=== PATIENT | male | born 1955 | race Two or more races ===

== ENCOUNTER 2022-06-11 13:30 | Outpatient (REF) | payer OTHER, SELFPAY ==
[2022-06-11 15:12] LABS: C Reactive Protein 0.35 mg/dL (< or = 0.50)
[2022-06-11 15:27] LABS: Erythrocyte Sedimentation Rate 11 MM/HR (0-15)
== END 2022-06-11 13:31 | disposition home or self-care (01) ==
LOC: HO.LAB 13:30
PROVIDERS: Visit Provider Psychiatry & Neurology Neurology
DX: G43.909 Migraine, unspecified, not intractable, without status migrainosus (principal)
CPT/HCPCS: 36415; 85652; 86140

== ENCOUNTER 2025-05-30 13:05 | Outpatient (AMB) | payer OTHER, SELFPAY ==
--- NOTE | 2025-05-30 13:17 | A.OFFVIS_ITS ---
Intake Visit Reasons: Follow up ok's per dr. daniel GIRALDO Comments Details: 70 years old man with Parkinson's disease, insomnia and migraine without aura. He is presenting with difficulty sleeping and management of Parkinson's Disease symptoms. He has a history of Parkinson's Disease, for which he takes Carbidopa- Levodopa. The patient continues to experience tremors, predominantly unresponsive to current medication due to potential risks associated with age. His current medication regimen effectively targets stiffness and slowing, allowing improved mobility. Sleep disturbances have persisted, averaging four to five hours of sleep per night, for which Trazodone is prescribed. Non-pharm acological strategies, including increased physical activity, were also discussed. Review of Systems Const Details: - Neurological: Reports tremors, particularly in the afternoon; Reports difficulty sleeping. - General: Denies adequate sleep duration. Physical Exam Neuro Other: He is alert and awake with normal spontaneity and fluency of speech. Facial expression blinking or diminished. There was [id number] bilateral hand resting tremor. He is walking in his stooped posture with decreased arm swing in his slow paced gait. Assessment & Plan Assessment & Plan (1) Parkinson disease: Code(s): G20.A1 - Parkinson's disease without dyskinesia, without mention of fluctuations Category: Medical Qualifiers: Dyskinesia presence: without dyskinesia Fluctuating manifestations: with fluctuating manifestations Qualified Code(s): G20.A2 - Parkinson's disease without dyskinesia, with fluctuations (2) Migraine: Code(s): G43.909 - Migraine, unspecified, not intractable, without status migrainosus Category: Medical Qualifiers: Migraine type: migraine (< 15 days per month) without aura Status migrainosus presence: without status migrainosus Intractability: not intractable Qualified Code(s): G43.009 - Migraine without aura, not intractable, without status migrainosus (3) Insomnia: Code(s): G47.00 - Insomnia, unspecified Category: Medical Qualifiers: Insomnia type: due to medical condition Qualified Code(s): G47.01 - Insomnia due to medical condition Plan Impression: a: Parkinson disease b: Migraine w/o aura c: Insomnia Rec: a: Carbidopa/levodopa ER, 50/200, 4 times a day b: Pramipexole 0.25mg, 3 times a day c: Rasagaline 0.5mg one a day d: Trazodone 50mg 1-2 at night During the visit, I discussed with the patient the chronic nature of Parkinson's Disease and the limitations in managing tremors due to potential adverse effects from certain medications in older patients. The risks of these medications include dizziness and urinary retention, which are significant at the patient's current age. We reviewed his current medication regimen, particularly Carbidopa- Levodopa, which has been beneficial for stiffness and mobility. There's acknowledgment of the ongoing tremors for which there's no suitable pharmacologic intervention at this time. For sleep disturbances, we discussed increasing the current dose of Trazodone to assess tolerance and efficacy. In addition, behavioral modifications such as increased physical activity were recommended to assist with sleep quality. I explained the rationale for these recommendations, their risks and benefits, and the necessity for the patient to monitor symptoms and response, reporting back for potential dosage adjustments. I advised a follow-up visit in six months unless issues arise sooner. Medications: New rasagiline 0.5 mg PO DAILY 90 tabs 1RF carbidopa-levodopa 50-200 mg ER divide evenly over waking hours 1 tab PO QID 360 tabs 1RF Refilled pramipexole 0.25 mg PO TID 270 tabs 0RF Coding Level of Care Code Est Pt Level 4 (72917) Diagnoses Parkinson's disease without dyskinesia, with fluctuating manifestations G20.A2 Dyskinesia presence: without dyskinesia Fluctuating manifestations: with fluctuating manifestations Migraine without aura and without status migrainosus, not intractable G43.009 Migraine type: migraine (< 15 days per month) without aura Status migrainosus presence: without status migrainosus Intractability: not intractable Insomnia due to medical condition G47.01 Insomnia type: due to medical condition
--- OUTSIDE RECORDS SUMMARY | 2025-05-30 16:04 | XMS_ITS | Clinical Summary ---
Author Organization [address] [facility] Address [address] [place] [address] Phone Care Team Providers Care Television Director Name Role Phone Rainer Yepez MD Primary Care Provider [phone] Allergies Active Allergy Reactions Criticality Noted Date Comments Iodine 03/29/2025 Penicillin G 03/29/2025 Medications carbidopa-levod opa CR (SINEMET CR) 50-200 mg per CR tablet Take 1 tablet by mouth 4 (four) times a day. 0 Active rasagiline (AZILECT) 0.5 mg tablet Take 1 tablet (0.5 mg total) by mouth 1 (one) time each day. 5 Active pramipexole (MIRAPEX) 0.25 mg tablet Take 1 tablet (0.25 mg total) by mouth 3 (three) times a day. 5 Active omeprazole (PriLOSEC) [address] capsule Take 1 capsule (20 mg total) by mouth 1 (one) time each day. 90 each 1 5 09/25/19 26 Active apixaban (ELIQUIS) 5 mg tablet Take 1 tablet (5 mg total) by mouth 2 (two) times a day. 180 each 1 5 09/25/19 26 Active clotrimazole-be tamethasone (LOTRISONE) 1-0.05 % cream Apply topically 2 (two) times a day. 30 g 1 5 09/25/19 26 Active traZODone (DESYREL) 50 mg tablet Take 1 tablet (50 mg total) by mouth at bedtime. 90 each 1 5 09/25/19 26 Active topiramate (TOPAMAX) 25 mg tablet Take 1 tablet (25 mg total) by mouth 1 (one) time each day. 90 each 1 5 09/25/19 26 Active sertraline (ZOLOFT) 50 mg tablet Take 1 tablet (50 mg total) by mouth 1 (one) time each day. 90 each 1 5 09/25/19 26 Active Encounters Date Type Department Care Team Description 03/29/2025 2:30 PM EDT Office Visit Internal Medicine - [address] [place] [address] Rainer Yepez MD Current mild episode of major depressive disorder, unspecified whether recurrent (CMS/HCC V24) (Primary Dx); Parkinson disease, symptomatic (CMS/HCC V24, CMS/HCC V28); Chronic atrial fibrillation (CMS/HCC V24, CMS/HCC V28); PSA elevation from Last 3 Months Surgical History Surgery Date Site/Laterality Comments LIPOMA RESECTION june 2016 PROCEDURE: SKIN TISSUE EXCISION(LIPOMA) Medical History Medical History Date Comments Thyromegaly DX:Thyromegaly HTN (hypertension) 02/12/2016 DX:HTN (hyper tension) Hyperlipidemia 02/12/2016 DX:Hyperlipidemi a GERD (gastroesophageal reflux disease) 05/19/2016 DX:GERD (gastroesophageal reflux disease) Varicose veins of lower extremity 06/23/2017 DX:Varicose veins of lower extremity IFG (impaired fasting glucose) 06/23/2017 D X:IFG (impaired fasting glucose) Family History Medical History Relation Name Comments Other: parkinsons Mother Breast cancer Other 1 neg hx Other: ovarian cancer Other 2 1/2 si ster Prostate cancer Other 3 neg hx Uterine cancer Other 4 neg hx Relation Name Status Comments Brother 1 Alive gallstones Brother 2 Alive 1/2 sibling Brother 3 Alive 1/2 sibling Daughter 1 Alive healthy Daughter 2 Alive healthy Daughter 3 Alive healthy Father (Age 86) alcoholism , colon cancer age 85 Maternal Grandmother Mother (Age 76) parkinsons Other 1 Other 2 Other 3 Other 4 Sister 1 Alive 1/2 sibling, ov nicki cancer Sister 2 Alive 1/2 sibling, th yroiditis Sister 3 Alive 1/2 sibling Sister 4 Alive 1/2 sibling Son Alive healthy Social History Tobacco Use Types Packs/Day Years Used Date Smoking Tobacco: Never Smokeless Tobacco: Never Alcohol Use Standard Drinks/Week Comments No 0 (1 standard drink = 0.6 oz pur e alcohol) Sex and Gender Information Value Date Recorded Sex Assigned at Not on file Legal Sex Male 4:54 AM EST Gender Identity Not on file Sexual Orientation Not on file Obstetrics History Last Filed Vital Signs Vital Sign Reading Time Taken Comments Blood Pressure 128/80 03/29/2025 2:41 PM EDT Pulse 77 03/29/2025 2:41 PM EDT Temperature 36.7 C (98 F) 03/29/2025 2:41 PM EDT Respiratory Rate - - Oxygen Saturation 98% 03/29/2025 2:41 PM EDT Inhaled Oxygen Concentration - - Weight 84.6 kg (186 lb 6.4 oz) 03/29/2025 2:41 P M EDT Height 180.3 cm (5' 11 ) 03/29/2025 2:41 PM EDT Body Mass Index 26 03/29/2025 2:41 PM EDT Plan of Treatment Upcoming Encounters Date Type Department Care Team (Late st Contact Info) Description 09/25/2025 3:00 PM EST Office Visit Internal Medicine - [place] [address] [facility] [address] [place] [address] Rainer Yepez MD [address] [facility] [address] [place] [address] Health Maintenance Due Date Last Done Comments Pneumococcal Vaccine: 50+ Years (1 of 2 - PCV) 1972 Zoster Vaccines (1 of 2) 2003 Abdominal Aortic Aneurysm (AAA) Screen 08/23/2022 Colorectal Cancer Screening: Stool Based Tests (FOBT/FIT) 08/23/2022 Hepatitis C Screening 08/23/2022 Social Influencers of Health Screening 08/23/2022 COVID-19 Vaccine ( season) 2025 08/12/2022, 07/08/2021, 12/24/2020, Additional history exists Influenza Vaccine (#1) 2025 3, 05/29/2022, 07/07/2021, Additional history exists DTaP,Tdap,and Td Vaccines (2 - Td or Tdap) 02/25/2026 02/26/2016 Falls Risk Assessment 03/29/2026 03/29/2025, 025 Medicare Annual Wellness Visit 03/29/2026 03/29/2025 Hypertension/CHF/CAD Annual BMP Blood Test 04/02/2026 04/02/2025, 03/17/2024 RSV Immunization Adult Patients (1 - 1-dose 75+ series) 2028 Cholesterol Screening (Lipid Panel) 04/02/2030 04/02/2025, 03/17/2024 Depression Screening Completed 03/29/2025 HIB Vaccines Aged Out No longer eligi ble based on patient's age to complete this topic HPV Vaccines Aged Out No longer eligi ble based on patient's age to complete this topic Hepatitis A Vaccines Aged Out No long er eligible based on patient's age to complete this topic Hepatitis B Vaccines Aged Out No long er eligible based on patient's age to complete this topic IPV Vaccines Aged Out No longer eligi ble based on patient's age to complete this topic MMR Vaccines Aged Out No longer eligi ble based on patient's age to complete this topic Meningococcal ACWY Vaccine Aged Out N o longer eligible based on patient's age to complete this topic Meningococcal B Vaccine Aged Out No l onger eligible based on patient's age to complete this topic RSV Immunization Patients Under 20 months Aged Out No longer eligible based on patient's age to complete this topic Varicella Vaccines Aged Out No longer eligible based on patient's age to complete this topic Procedures Procedure Name Priority Date/Time Associated Diagnosis Comments CBC WITH AUTO DIFFERENTIAL Routine 04/02/2025 2:16 PM EDT Current mild episode of major depressive disorder, unspecified whether recurrent (CMS/HCC V24) Parkinson disease, symptomatic (CMS/HCC V24, CMS/HCC V28) Chronic atrial fibrillation (CMS/HCC V24, CMS/HCC V28) THYROID STIMULATING HORMONE Routine 04/02/2025 2:16 PM EDT Current mild episode of major depressive disorder, unspecified whether recurrent (CMS/HCC V24) Parkinson disease, symptomatic (CMS/HCC V24, CMS/HCC V28) Chronic atrial fibrillation (CMS/HCC V24, CMS/HCC V28) LIPID PANEL WITH REFLEX TO DIRECT LDL Routine 04/02/2025 2:16 PM EDT Current mild episode of major depressive disorder, unspecified whether recurrent (CMS/HCC V24) Parkinson disease, symptomatic (CMS/HCC V24, CMS/HCC V28) Chronic atrial fibrillation (CMS/HCC V24, CMS/HCC V28) COMPREHENSIVE METABOLIC PANEL Routine 04/02/2025 2:16 PM EDT Current mild episode of major depressive disorder, unspecified whether recurrent (CMS/HCC V24) Parkinson disease, symptomatic (CMS/HCC V24, CMS/HCC V28) Chronic atrial fibrillation (CMS/HCC V24, CMS/HCC V28) CBC AND DIFFERENTIAL Routine 04/02/2025 2:16 PM EDT Current mild episode of major depressive disorder, unspecified whether recurrent (CMS/HCC V24) Parkinson disease, symptomatic (CMS/HCC V24, CMS/HCC V28) Chronic atrial fibrillation (CMS/HCC V24, CMS/HCC V28) from Last 3 Months Results * (ABNORMAL) Lipid panel with reflex to direct LDL (04/02/2025 2:16 PM EDT) Cholesterol 198 0 - 200 mg/dL LAB CHEMISTRY METHOD 04/02/2025 8:10 PM [facility] Triglycerides 107 0 - 150 mg/dL LAB CHEMISTRY METHOD 04/02/2025 8:10 PM [facility] HDL 71 >=40 mg/dL LAB CHEMISTRY METHOD 04/02/2025 8:10 PM T [facility] LDL Calculated 106(H) 0 - 100 mg/dL LAB CHEMISTRY METHOD 04/02/2025 8:10 PM [facility] VLDL Cholesterol Chet 21.4 mg/dL LAB CHEMISTRY METHOD 04/02/2025 8:10 PM [facility] Non HDL Chol. (LDL+VLDL) 127 <145 mg/dL LAB CHEMISTRY METHOD 04/02/2025 8:10 PM EDT [facility] Chol/HDL Ratio 2.8 0.0 - 4.4 LAB CHEMISTRY METHOD 04/02/2025 8:10 PM EDT [facility] Blood Venous blood specimen / Unknown Venipuncture / Unknown 04/02/2025 2:16 PM EDT 04/02/2025 2:16 PM EDT us Rainer Ypeez MD LAB BLOOD ORDERABLES Final Resul t [facility] [address] [place] [address], [place] [phone] * (ABNORMAL) CBC auto differential (04/02/2025 2:16 PM EDT) WBC 5.0 4.8 - 10.8 K/mcL LAB HEMETOLOGY METHOD 04/02/2025 6:20 PM EDT [facility] RBC 4.80 4.50 - 5.50 M/mcL LAB HEMETOLOGY METHOD 04/02/2025 6:20 PM EDT [facility] Hemoglobin 14.4 13.5 - 17.5 g/dL LAB HEMETOLOGY METHOD 04/02/2025 6:20 PM EDT [facility] Hematocrit 44.7 42.0 - 54.0 % LAB HEMETOLOGY METHOD 04/02/2025 6:20 PM EDT [facility] MCV 94.1 79.0 - 98.0 FL LAB HEMETOLOGY METHOD 04/02/2025 6:20 PM EDT [facility] MCH 30.3 27.0 - 32.0 pcg LAB HEMETOLOGY METHOD 04/02/2025 6:20 PM EDT [facility] MCHC 32.2 32.0 - 37.0 g/dL LAB HEMETOLOGY METHOD 04/02/2025 6:20 PM EDT [facility] RDW 13.2 11.0 - 15.0 % LAB HEMETOLOGY METHOD 04/02/2025 6:20 PM EDT [facility] Platelets 239 130 - 400 K/mcL LAB HEMETOLOGY METHOD 04/02/2025 6:20 PM EDT [facility] MPV 10.6 7.0 - 11.0 FL LAB HEMETOLOGY [facility] NRBC 0.0 <1.0 % LAB HEMETOLOGY METHOD 04/02/2025 6:20 PM EDT [facility] NRBC Absolute 0.00 <0.10 K/mcL LAB HEMETOLOGY METHOD 04/02/2025 6:20 PM EDT [facility] Neutrophils Relative 71.7 % LAB HEMETOLOGY METHOD 04/02/2025 6:20 PM [facility] Lymphocytes Relative 19.3 % LAB HEMETOLOGY METHOD 04/02/2025 6:[facility] Monocytes Relative 7.8 % LAB HEMETOLOGY METHOD 04/02/2025 6:[facility] Eosinophils Relative 0.8 % LAB HEMETOLOGY METHOD 04/02/2025 6:20 PM [facility] Basophils Relative 0.2 % LAB HEMETOLOGY METHOD 04/02/2025 6:20 PM [facility] Immature Granulocytes Relative 0.2 % LAB HEMETOLOGY METHOD 04/02/2025 6:20 PM [facility] Neutrophils Absolute 3.57 1.50 - 7.00 K/mcL LAB HEMETOLOGY METHOD 04/02/2025 6:20 PM EDT [facility] Lymphocytes Absolute 0.96(L) 1.00 - 5.00 K/mcL LAB HEMETOLOGY METHOD 04/02[facility]2025 6[facility] Monocytes Absolute 0.39 0.20 - 1.00 K/mcL LAB HEMETOLOGY METHOD 04/02/2025 6:20 PM EDT [facility] Eosinophils Absolute 0.04 0.00 - 0.50 K/mcL LAB HEMETOLOGY METHOD 04/02/2025 6:20 PM EDT [facility] Basophils Absolute 0.01 0.00 - 0.20 K/mcL LAB HEMETOLOGY METHOD 04/02/2025 6:20 PM EDT [facility] Immature Granulocytes Absolute 0.01 0.00 - 0.03 K/mcL LAB HEMETOLOGY METHOD 04/02/2025 6:20 PM EDT [facility] Blood Venous blood specimen / Unknown Venipuncture / Unknown 04/02/2025 2:16 PM EDT 04/02/2025 2:16 PM EDT us Rainer Yepez MD LAB BLOOD ORDERABLES Final Resul t Performing Organization Address City/[facility]/ZIP Co de Phone Number [facility] [address] [place] [address], [place] [phone] * Thyroid stimulating hormone (04/02/2025 2:16 PM EDT) [facility] TSH 2.07 0.40 - 4.00 mcIU/mL LAB CHEMISTRY METHOD 04/02/2025 8:36 PM EDT [facility] Blood Venous blood specimen / Unknown Venipuncture / Unknown 04/02/2025 2:16 PM EDT 04/02/2025 2:16 PM EDT us Rainer Yepez MD LAB BLOOD ORDERABLES Final Resul t [facility] [address] [place] [address], [place] [phone] * Comprehensive metabolic panel (04/02/2025 2:16 PM EDT) [facility] Sodium 138 133 - 145 mmol/L LAB CHEMISTRY METHOD 04/02/2025 8:10 PM [facility] Potassium 4.2 3.5 - 5.5 mmol/L LAB CHEMISTRY METHOD 04/02/2025 8:10 PM [facility] Chloride 104 96 - 110 mmol/L LAB CHEMISTRY METHOD 04/02/2025 8:10 PM [facility] CO2 29 21 - 32 mmol/L LAB CHEMISTRY METHOD 04/02/2025 8:10 PM [facility] Anion Gap 5 3 - 11 LAB CHEMISTRY METHOD 04/02/2025 8:10 PM [facility] Glucose 92 70 - 100 mg/dL LAB CHEMISTRY METHOD 04/02/2025 8:10 PM [facility] BUN 12 5 - 25 mg/dL LAB CHEMISTRY METHOD 04/02/2025 8:10 PM [facility] Creatinine 0.79 0.70 - 1.30 mg/dL LAB CHEMISTRY METHOD 04/02/2025 8:10 PM [facility] eGFR 95 >=60 mL/min/1. 73m2 LAB CHEMISTRY METHOD 04/02/2025 8:10 PM [facility] Comment:Calculation based on the Chronic Kidney Disease Epidemiology Collaboration (CKD-EPI) equation refit without adjustment for race. BUN/Creatinine Ratio 15.2 LAB CHEMISTRY METHOD 04/02/2025 8:10 PM [facility] Calcium 9.4 8.5 - 10.5 mg/dL LAB CHEMISTRY METHOD 04/02/2025 8:10 PM [facility] AST (SGOT) 22 10 - 42 unit/L LAB CHEMISTRY METHOD 04/02/2025 8:10 PM [facility] ALT (SGPT) 13 10 - 60 unit/L LAB CHEMISTRY METHOD 04/02/2025 8:10 PM [facility] Alkaline Phosphatase 117 42 - 121 unit/L LAB CHEMISTRY METHOD 04/02/2025 8:10 PM EDT [facility] Total Protein 7.5 6.0 - 8.0 g/dL LAB CHEMISTRY METHOD 04/02/2025 8:10 PM EDT [facility] Albumin 3.9 3.2 - 5.0 g/dL LAB CHEMISTRY METHOD 04/02/2025 8:10 PM EDT [facility] Total Bilirubin 0.6 0.0 - 1.4 mg/dL LAB CHEMISTRY METHOD 04/02/2025 8:10 PM EDT [facility] Blood Venous blood specimen / Unknown Venipuncture / Unknown 04/02/2025 2:16 PM EDT 04/02/2025 2:16 PM EDT us Rainer Yepez MD LAB BLOOD ORDERABLES Final Resul t [facility] [address] [place] [address], from Last 3 Months Insurance [employer] Member Subscriber Plan / Payer (Ef fective 2019-Present) Name:Angel Luis Guzmán Relation to Subscriber:Self Name:Angel Lius Guzmán Payer ID:[id number] Group ID:[id number] Type:Not on file Address: [place] [address] [address] [id number] Care Teams Television Director Relationship Specialty Start Date End Date Rainer Yepez MD [address] [address] PCP - General Internal Medicine 06/13/19
== END 2025-05-30 13:32 | disposition home or self-care (01) ==
LOC: HO.HSM 13:05
PROVIDERS: Visit Provider Psychiatry & Neurology Neurology
DX: G20.A2 Parkinson's disease without dyskinesia, with fluctuations (principal); G43.009 Migraine without aura, not intractable, without status migrainosus; G47.01 Insomnia due to medical condition
CPT/HCPCS: 99214

== ENCOUNTER → 2025-05-30 13:05 | Outpatient (BNVA) | payer OTHER, SELFPAY | PROVIDERS: Visit Provider Psychiatry & Neurology Neurology | DX: G20.A2 Parkinson's disease without dyskinesia, with fluctuations (principal); G43.009 Migraine without aura, not intractable, without status migrainosus; G47.01 Insomnia due to medical condition | CPT/HCPCS: 99212 ==

== ENCOUNTER 2025-08-13 10:28 | Outpatient (AMB) | payer OTHER, SELFPAY ==
--- NOTE | 2025-08-13 10:56 | MHC.OFFVIS ---
Intake Visit Reasons: worse symptoms HPI Comments Details: 70 years old man with Parkinson's disease, insomnia and migraine without aura. He is presenting for follow-up of a progressive neurodegenerative disorder with worsening symptoms. The patient's condition has reportedly declined rapidly over the past three months. New symptoms include nocturnal body stiffness, constant shaking, and difficulty moving, described as feeling like a rock. The patient is also experiencing agitation and visual hallucinations of dogs. There is associated imbalance, and the patient utilizes a walker for ambulation. Associated conditions include constipation, with bowel movements occurring approximately every five days. The patient has no known history of heart disease. Current medications for the condition include carbidopa-levodopa 50/200 four times a day and pramipexole 0.25. Review of Systems Narrative - Neurological: Reports worsening tremor, body stiffness, difficulty with movement, and imbalance. - Also reports visual hallucinations. - Psychiatric: Reports agitation. - Gastrointestinal: Reports constipation with slow bowel movements, occurring every five days. - Constitutional: Reports generalized worsening of condition. Physical Exam Neuro Other: Mental Status: Alert and oriented to person, place, and time. Normal attention. Normal spontaneous speech, fluency, and comprehension. Cranial Nerves: CN II: Visual henao full to confrontation, visual acuity intact. CN III, IV, : Pupils equal, round, reactive to light and accommodation. Extraocular movements are normal. CN V: Facial sensation is normal. CN VII: Facial movements symmetrical. CN VIII: Hearing intact to bedside conversation is normal. CN IX, X: Palate elevates symmetrically. CN XI: Shoulder shrug and head turn symmetrical. CN XII: Tongue midline without atrophy or fasciculations. In a wheelchair. Extrapyramidal: Decreased facial expression blinking. Moderate generalized bradykinesia. Moderate bilateral hand tremor. Speech: Normal; no dysarthria or tremor. Assessment & Plan Assessment & Plan (1) Parkinson disease: Code(s): G20.A1 - Parkinson's disease without dyskinesia, without mention of fluctuations Category: Medical Qualifiers: Dyskinesia presence: without dyskinesia Fluctuating manifestations: with fluctuating manifestations Qualified Code(s): G20.A2 - Parkinson's disease without dyskinesia, with fluctuations (2) Migraine: Code(s): G43.909 - Migraine, unspecified, not intractable, without status migrainosus Category: Medical Qualifiers: Migraine type: migraine (< 15 days per month) without aura Status migrainosus presence: without status migrainosus Intractability: not intractable Qualified Code(s): G43.009 - Migraine without aura, not intractable, without status migrainosus (3) Insomnia: Code(s): G47.00 - Insomnia, unspecified Category: Medical Qualifiers: Insomnia type: due to medical condition Qualified Code(s): G47.01 - Insomnia due to medical condition Plan Impression: a: Parkinson disease b: Migraine w/o aura c: Insomnia Rec: a: Carbidopa/levodopa ER, 50/200, 4 times a day b: Pramipexole 0.5mg, 3 times a day c: Rasagaline 0.5mg one a day d: Trazodone 50mg 1-2 at night e: Benztropine 0.5mg bid f: PT/OT I explained to the patient's family that the recent decline, including worsening stiffness, tremor, hallucinations, and imbalance, is consistent with the natural progression of the patient's neurodegenerative disease. We discussed medication changes, including adding benztropine for tremor and increasing the dose of pramipexole. I also introduced deep brain stimulation (DBS) as a potential advanced treatment option, noting it would require a referral to a specialized center in [place] or [place] for evaluation. Referrals for physical and occupational therapy were made to help manage symptoms. I advised them to address the patient's constipation with the primary care physician. A follow-up visit is scheduled in three months. Orders: Orders OT Evaluation and Treatment Today G20.A2 - Parkinson's disease without dyskinesia, with fluctuations PT Evaluation and Treatment Today G20.A2 - Parkinson's disease without dyskinesia, with fluctuations Medications: New benztropine 0.5 mg PO BID 60 tabs 0RF pramipexole 0.5 mg PO TID 270 tabs 0RF Discontinued pramipexole Discontinued Reason: Doctor's Order 0.25 mg PO TID 270 tabs 0RF Coding Level of Care Code Est Pt Level 4 (85568) Diagnoses Parkinson's disease without dyskinesia, with fluctuating manifestations G20.A2 Dyskinesia presence: without dyskinesia Fluctuating manifestations: with fluctuating manifestations Migraine without aura and without status migrainosus, not intractable G43.009 Migraine type: migraine (< 15 days per month) without aura Status migrainosus presence: without status migrainosus Intractability: not intractable Insomnia due to medical condition G47.01 Insomnia type: due to medical condition Time Spent (min) 40
--- OUTSIDE RECORDS SUMMARY | 2025-08-13 13:00 | XMS_ITS | Clinical Summary ---
Author Organization [address] [facility] Address [address] [place] [address] Phone Care Team Providers Care [employer] Applier Name Role Phone Rainer Yepez MD Primary Care Provider [phone] Allergies Active Allergy Reactions Criticality Noted Date [...] 90 each 1 5 09/25/19 26 Active Surgical History Surgery Date Site/Laterality Comments LIPOMA [...] PM EST Office Visit Internal Medicine - [place] [address] [facility] [address] [place] [id number] Rainer Yepez MD [address] [facility] [address] [place] [address] Health Maintenance Due Date Last Done Comments Pneumococcal Vaccine: 50+ Years (1 of 2 - PCV) 1972 Zoster Vaccines (1 of 2) 2003 Abdominal Aortic Aneurysm (AAA) Screen 08/23/2022 Colorectal Cancer Screening: Stool Based Tests (FOBT/FIT) 08/23/2022 Hepatitis C Screening 08/23/2022 Social Influencers of Health Screening 08/23/2022 COVID-19 Vaccine ( season) 2025 08/12/2022, 07/08/2021, 12/24/2020, Additional history exists Influenza Vaccine (#1) 2025 , 05/29/2022, 07/07/2021, Additional history exists DTaP,Tdap,and Td [...] Procedure Name Priority Date/Time Associated Diagnosis Comments COMPREHENSIVE METABOLIC PANEL Routine 04/02/2025 2:16 PM [...] V24, CMS/HCC V28) from Last 3 Months or Most Recently Relevant to Health Maintenance Results * (ABNORMAL) Lipid panel with reflex to direct LDL (04/02/2025 2:16 PM EDT) Cholesterol 198 0 - 200 mg/dL LAB CHEMISTRY METHOD 04/02/2025 8:10 PM EDT [facility] Triglycerides 107 0 - 150 mg/dL LAB CHEMISTRY METHOD 04/02/2025 8:10 PM EDT [facility] HDL 71 >=40 mg/dL LAB CHEMISTRY METHOD 04/02/2025 8:10 PM EDT [facility] LDL Calculated 106(H) 0 - 100 mg/dL LAB CHEMISTRY METHOD 04/02/2025 8:10 PM EDT [facility] VLDL Cholesterol Chet 21.4 mg/dL LAB CHEMISTRY METHOD 04/02/2025 8:10 PM EDT [facility] Non HDL Chol. (LDL+VLDL) 127 <145 mg/dL LAB CHEMISTRY METHOD 04/02/2025 8:10 PM EDT [facility] Chol/HDL Ratio 2.8 0.0 - 4.4 LAB CHEMISTRY METHOD 04/02/2025 8:10 PM EDT [facility] Blood Venous blood specimen / Unknown Venipuncture / Unknown 04/02/2025 2:16 PM EDT 04/02/2025 2:16 PM EDT us Rainer Yepez MD LAB BLOOD ORDERABLES Final Resul t [facility] [address] [place] [address], * Comprehensive metabolic panel (04/02/2025 2:16 PM EDT) Sodium 138 133 - 145 mmol/L LAB CHEMISTRY METHOD 04/02/2025 8:10 PM EDT [facility] Potassium 4.2 3.5 - 5.5 mmol/L LAB CHEMISTRY METHOD 04/02/2025 8:10 PM T [facility] Chloride 104 96 - 110 mmol/L LAB CHEMISTRY METHOD 04/02/2025 8:10 PM EDT [facility] CO2 29 21 - 32 mmol/L LAB CHEMISTRY METHOD 04/02/2025 8:[address] [facility] Anion Gap 5 3 - 11 LAB CHEMISTRY METHOD 04/02/2025 8:10 PM EDT [facility] Glucose 92 70 - 100 mg/dL LAB CHEMISTRY METHOD 04/02/2025 8:[address] [facility] BUN 12 5 - 25 mg/dL LAB CHEMISTRY METHOD 04/02/2025 8:[address] [facility] Creatinine 0.79 0.70 - 1.30 mg/dL LAB CHEMISTRY METHOD 04/02/2025 8:[address] [facility] eGFR 95 >=60 mL/min/1. 73m2 LAB CHEMISTRY METHOD 04/02/2025 8:[address] [facility] Comment:Calculation based on the Chronic Kidney Disease Epidemiology Collaboration (CKD-EPI) equation refit without adjustment for race. BUN/Creatinine Ratio 15.2 LAB CHEMISTRY METHOD 04/02/2025 8:[address] [facility] Calcium 9.4 8.5 - 10.5 mg/dL LAB CHEMISTRY METHOD 04/02/2025 8:[address] [facility] AST (SGOT) 22 10 - 42 unit/L LAB CHEMISTRY METHOD 04/02/2025 8:[address] [facility] ALT (SGPT) 13 10 - 60 unit/L LAB CHEMISTRY METHOD 04/02/2025 8:[address] [facility] Alkaline Phosphatase 117 42 - 121 unit/L LAB CHEMISTRY METHOD 04/02/2025 8:[address] [facility] Total Protein 7.5 6.0 - 8.0 g/dL LAB CHEMISTRY METHOD 04/02/2025 8:[address] [facility] Albumin 3.9 3.2 - 5.0 g/dL LAB CHEMISTRY METHOD 04/02/2025 8:[address] [facility] Total Bilirubin 0.6 0.0 - 1.4 mg/dL LAB CHEMISTRY METHOD 04/02/2025 8:[address] [facility] Blood Venous blood specimen / Unknown Venipuncture / Unknown 04/02/2025 2:16 PM EDT 04/02/2025 2:16 PM EDT Rainer Yepez MD LAB BLOOD ORDERABLES Final Resul t [facility] [address] [place] [address], [place] [phone] from Last 3 Months or Most Recently Relevant to Health Maintenance Insurance [facility]IC[facility] Member Subscriber Plan / Payer (Ef fective 2019-Present) Name:Angel Luis Guzmán Relation to Subscriber:Self Name:Angel Luis Guzmán Payer ID:[id number] Group ID:[id number] Type:Not on file Address: [place] [address] [address] [phone] Care Teams [employer] Applier Relationship Specialty Start Date End Date Rainer Yepez MD [address] [address] PCP - General Internal Medicine 06/13/19
== END 2025-08-13 11:08 | disposition home or self-care (01) ==
LOC: HO.HSM 10:29
PROVIDERS: Visit Provider Psychiatry & Neurology Neurology
DX: G20.A2 Parkinson's disease without dyskinesia, with fluctuations (principal); G43.009 Migraine without aura, not intractable, without status migrainosus; G47.01 Insomnia due to medical condition
CPT/HCPCS: 99214

== ENCOUNTER → 2025-08-13 10:28 | Outpatient (BNVA) | payer OTHER, SELFPAY | PROVIDERS: Visit Provider Psychiatry & Neurology Neurology | DX: G20.A2 Parkinson's disease without dyskinesia, with fluctuations (principal); G43.009 Migraine without aura, not intractable, without status migrainosus; G47.01 Insomnia due to medical condition | CPT/HCPCS: 99212 ==